=== PATIENT | female | born 1965 | race Caucasian/White ===

== ENCOUNTER 2019-04-14 13:41 | Emergency (ER) | payer OTHER, SELFPAY ==
--- NOTE | ~2019-04-14 | XR_ITS ---
EXAMINATION: XR chest 2V EXAM DATE: 04/14/2019 14:40 INDICATION: Right-sided chest pain. TECHNIQUE: Frontal and lateral projections of the chest obtained and reviewed. Comparison is made to prior examination from 09/19/2018. FINDINGS: Mild hyperinflation. The lungs are clear. There are no pleural effusions. The cardiomedi astinal silhouette is within normal limits. There is no pneumothorax suspected. The bones and soft tissues are unremarkable. Cervical fusion hardware. IMPRESSION: No acute cardiopulmonary findings. Reviewed, dictated and finalized at location B. TRIC POWER LINE REPAIRER
--- NOTE | 2019-04-14 14:04 | ECG_ITS ---
Measurements Intervals [place] Rate: 90 P: 71 [place]: 168 QRS: 103 QRSD: 74 T: 60 QT: 357 QTc: 438 Interpretive Statements SINUS RHYTHM RIGHT AXIS DEVIATION BORDERLINE ECG Electronically Signed On 04-14-2019 14:27:23 METER CALIBRATOR by Duglas Garcia D.O.
[2019-04-14 14:08] VITALS: BP 139/86; PULSE 92; RESP 16; TEMP 37.2; O2SAT 100
[2019-04-14 14:30] LABS: Basophils Percent Auto 0.5 % (0.2-1.2); Eosinophils Absolute Auto 0.1 K/mm3 (0-0.3); Hematocrit 47.8 % (37.0-47.0); Hemoglobin 15.4 g/dL (12.0-15.0); Immature Granulocyte Absolute 0.02 K/mm3 (0.00-0.031); Immature Granulocyte Percent A 0.2 % (0-0.5); Lymphocytes Percent Auto 27.8 % (18.3-44.2); Mean Corpuscular HGB Conc 32.2 g/dl (32-36); Mean Corpuscular Hemoglobin 29.6 pg (26-34); Mean Corpuscular Volume 91.9 fl (80-100); Mean Platelet Volume 9.4 fl (7.4-10.4); Monocytes Absolute Auto 0.3 K/mm3 (0.1-0.6); Monocytes Percent Auto 3.6 % (2.6-8.5); Neutrophils Absolute Auto 5.5 K/mm3 (1.3-6.7); Neutrophils Percent Auto 66.9 % (45.5-73.1); Platelet Count Result 324 k/mm3 (150-375); Red Cell Distribution Width 15.6 % (11.5-14.5); White Blood Count 8.3 K/mm3 (4.5-10.0)
[2019-04-14 14:41] LABS: INR 0.9; Partial Thromboplastin Time 27.6 SECONDS (22.3-36.8); Prothrombin Time 12.2 Seconds (11.1-14.7)
[2019-04-14 14:49] LABS: Blood Urea Nitrogen 12 mg/dL (7-17); Calcium 9.8 mg/dL (8.4-10.2); Carbon Dioxide 26 mmol/L (22-30); Chloride 104 mmol/L (98-107); Estimated CRCL calculation 78 ml/min; Estimated Glomerular Filt Rate > 60; Glucose 126 mg/dL (65-105); Potassium 3.3 mmol/L (3.4-5.0); Sodium 142 mmol/L (137-145)
[2019-04-14 14:59] LABS: Troponin I < 0.012 ng/mL (0.000-0.034)
--- NOTE | 2019-04-14 15:14 | ED.CHESTPAIN ---
HPI - Chest Pain General Chief Complaint: Chest Pain Stated Complaint: CP, arm pain, neck pain Time Seen by Provider: 04/14/19 15:07 Source: patient and RN notes reviewed Mode of arrival: ambulatory Limitations: no limitations History of Present Illness HPI narrative: Pt is a 53 y/o female presenting to the ED c/o CP. Pt reports she has been experiencing CP for over a week. Pt states the pain started in her lt sided chest but is now diffuse across her chest. Pt describes the pain as dull and sharp. Pt states she was seen by her PCP about her pain who suspected it was muscular in origin. Pt notes she has had similar pain about 9 years ago and states they suspected pleurisy at that time. Pt also reports bilateral shoulder pain for 1.5 weeks, BUE pain for 1.5 weeks, chronic rt sided neck pain, diaphoresis, chills, and chronic nausea, but denies fever, cough, rhinorrhea, or congestion. Pt states she currently takes Hydrocodone TID and Baclofen. Onset (ago): week(s) (1) Pain location: other (Diffuse chest) Associated symptoms: nausea (Chronic), diaphoresis and other (Bilateral shoulder pain; BUE pain; chills; Chronic rt sided neck pain) Related Data Allergies Allergy/AdvReac Type Severity Reaction Status Date / Time codeine Allergy Unknown NAUSEA Verified 10/18/18 11:08 Penicillins Allergy Unknown Unknown Verified 10/18/18 11:08 Review of Systems Review of Systems: All systems reviewed & are unremarkable except as noted in HPI and below Constitutional: Constitutional: Reports chills and Denies fever(s) ENT: Denies nasal congestion and Denies other (Rhinorrhea) Cardiovascular: Cardiovascular: Reports chest pain (Diffuse) and Reports diaphoresis Respiratory: Respiratory: Denies cough Gastrointestinal: Gastrointestinal: Reports nausea (Chronic) Musculoskeletal: Musculoskeletal: Reports neck pain (Chronic rt sided) and Reports other (Bilateral shoulder pain; BUE pain) [facility] Past Medical History Medical History Arthritis Asthma Bronchitis DDD (degenerative disc disease) Neck Depression Endometriosis Gall bladder disease History of bipolar disorder History of rectal polyps HLD (hyperlipidemia) Previous known suicide attempt UTI (urinary tract infection) Surgical History Surgical History H/O dilation and curettage H/O rectal polypectomy H/O Spinal surgery Neck H/O tubal ligation H/O: hysterectomy History of x3 History of cholecystectomy History of endometrial ablation History of tonsillectomy Social History Social History Smoking status: Unknown if ever smoked Exam Narrative: Exam Narrative: GENERAL: Well-appearing, well-nourished, and in no acute distress. HEAD: Normocephalic, atraumatic EYES: PERRLA and EOMI, conjunctiva clear without discharge THROAT:Mucous membranes moist, Oropharynx normal without erythema, exudate, peritonsillar swelling or fluctuance NECK: Supple, without lymphadenopathy or mass RESPIRATORY: No respiratory distress, Airway patent, Respirations non-labored, Clear to auscultation without rales, rhonchi or wheeze HEART: Regular rate and rhythm. No murmur heard. Normal peripheral pulses. ABDOMEN: Soft, nontender, nondistended, normal active bowel sounds. No masses. No rebound or guarding, No organomegaly. EXTREMITIES: No edema, normal strength with full range of motion. SKIN: Warm, dry, normal color without rash NEURO: Alert and oriented x3. CN 2-12 grossly intact. No focal deficits. PSYCH: Normal mood and affect. Chest: Chest palpation & inspection: tenderness (reproducible to entire chest wall and shoulders) Course Course Emergency Course: I discussed with patient her pain does appear to muscular. Evaluation unremarkable. Vital Signs Vital signs: Vital Signs Temperature 99.0 F 04/14/19 14:08 Pulse Rate 92 04/14/19 14:08 Resp
[2019-04-14 15:15] VITALS: BP 129/91; PULSE 84; PULSE 88; RESP 12; O2SAT 100
[2019-04-14] MEDS: KETOROLAC 30 MG/ML VIAL (*BKC) IV PUSH (15:46)
[2019-04-14 15:48] VITALS: BP 127/81; PULSE 71; RESP 10; O2SAT 98
[2019-04-14 15:52] LABS: D Dimer 0.27 ug/mL (<0.48)
[2019-04-14 16:37] VITALS: BP 133/62; PULSE 73; RESP 16; O2SAT 100
[2019-04-14 17:34] VITALS: BP 135/86; PULSE 81; RESP 18; O2SAT 100
--- NOTE | 2019-04-14 17:35 | PC.NURSE ---
WHEN AT BEDSIDE TO DRAW 3 HOUR TROP, PT TEARFUL, VERY UPSET, STATES I DON'T KNOW WHY I COME HERE, YOU PEOPLE DON'T KNOW ANYTHING, I NEVER GET ANY ANSWERS WHEN I COME HERE, NO YOU WANT TO POKE ME AGAIN AND LEAVE A BRUISE, ISN'T THIS WHAT THE IV IS FOR?! AFTER EXPLAINING THE NEED FOR THE TROPONIN, PT CUTS ME OFF STATING THAT I KNOW WHY YOU HAVE TO DRAW ME, THAT DOCTOR CAME IN AND DISCUSSED IT WITH ME ALREADY, I DON'T WANT TO DO IT THOUGH. I THEN INFORMED PT THAT I WOULD NOT DRAW HER IF SHE DID NOT WANT ME TO AND THAT IF SHE WANTS TO LEAVE I WILL ARRANGE THE PAPERWORK. PT MORE UPSET STATING THAT YEAH, THEN YOU'LL TRY AND MAKE ME SIGN OUT AGAINST MEDICAL ADVISE, I'M NOT DOING THAT. I DID THEN CONFIRM THAT PT WOULD HAVE TO SIGN OUT AMA IF SHE WANTED TO LEAVE, PT CRYING, STATES JUST STICK ME ALREADY. I THEN SUCCESSFULLY STRAIGHT STUCK TO OBTAIN THE 3 HOUR TROPONIN.
[2019-04-14 17:55] LABS: Troponin I < 0.012 ng/mL (0.000-0.034)
[2019-04-14 18:20] VITALS: BP 148/56; PULSE 90; RESP 21; O2SAT 99
== END 2019-04-14 18:23 | disposition home or self-care (01) ==
PROVIDERS: Emergency Medicine; Emergency Provider General Practice; PCP Family Medicine
DX: R07.89 Other chest pain (principal); M79.10 Myalgia, unspecified site; M19.90 Unspecified osteoarthritis, unspecified site; J45.909 Unspecified asthma, uncomplicated; E78.5 Hyperlipidemia, unspecified; Z87.19 Personal history of other diseases of the digestive system; Z87.440 Personal history of urinary (tract) infections
CPT/HCPCS: 36415; 71046; 80048; 84484; 85025; 85380; 85610; 85730; 93005; 96374; 99284; J1885

== ENCOUNTER 2019-04-30 16:15 | Outpatient (RCR) | payer OTHER, SELFPAY ==
--- NOTE | 2019-04-02 17:44 | PTOPEVAL ---
PHYSICAL THERAPY EVALUATION AND PLAN OF CARE Thank you for referring this patient to [facility]. Audrey will be seen in PT 2x/week for 4 weeks. Please review, sign, date and return this plan of care KAROLINA. I agree with and certify that the following plan of care is medically necessary. Referring Physician Date Attending Provider: Aleja Coffey, ENGLISH AS A SECOND LANGUAGE INSTRUCTOR Evaluation Outpatient Past Medical History Musculoskeletal History Hx Spinal Surgery Yes: C5-6 fusion 2005 Evaluation Information Problem Diagnosis chronic low back pain Onset 2009 Cause insidious Subjective Information Audrey is here today with Query Text:As Reported By Patient/ chronic history of LBP with Family hip and tailbone pain. States that in 2009 she fell down the stairs and went to urgent care who presumed it to be a bruised/fractured tailbone and not prescribe a treatment. Since then the pain has been worsening and moving to her tail bone and hips. States that the hip pain is more deep achey and not shooting. She will ocassionally feel a sharp pain in the back if she moves a certain way and contributes that to a bulging discs. Went pain [facility] and received injections to both hips. Not sure if she felt relief from the injections. Pain Assessment Self Report Pain Assessment Bilateral Spine, Lumbar Reported Pain Level 7 Pain Aggravating Factors Bending,Lifting,Sitting, Walking,Weight Bearing/ Standing Pain Behaviors Anxious,Guarding,Irritable Pain Relief Interventions Used By Heat,Inactivity/Rest Patient Additional Pain Comments left is a little worse than right. Pain Score Pain Score 7: Self Report Lower Extremity Range of Motion General Lower Extremity Range of Motion Reason Not Measured WNL/Left,WNL/Right Lumbar Muscle Testing Lumbar Strength Lower Abdominal Strength 3-Fair- Upper Back Extension 3-Fair- Lower Back Extension 3-Fair- Lower Extremity Muscle Strength Testing General Lower Extremity Strength Reason Not Measured WFL/Left,WFL/Right Gross Lower Extremity Strength generally increase of symptoms
--- NOTE | 2019-04-30 16:55 | PTOPEVAL ---
PHYSICAL THERAPY PLAN OF CARE UPDATE AND PROGRESS REPORT Thank you for referring this patient to [facility]. I recommend Patricia follow-up with her referring physician and determine together further needs for PT based on current progress. Please review, sign, date and return this plan of care KAROLINA. I agree with and certify that the following plan of care is medically necessary. Referring Physician Date Attending Provider: Aleja Coffey, CERAMIC ENGINEER Re-evaluation Outpatient Past Medical History Musculoskeletal History Hx Spinal Surgery Yes: C5-6 fusion 2005 Evaluation Information Problem Diagnosis chronic low back pain Onset 2009 Cause insidious Subjective Information Audrey is here today for re- Query Text:As Reported By Patient/ evaluation following 4 weeks Family of physical therapy for chronic back pain. she reports today that she does not really feel any different. Her middle of her back is the same crushing pain and states that her hips might even have more pain because they hurt during the day and when she walks now instead of just at night. Does not really notice a difference in her ability to tolerate activity or increase her activity levels. Pain Assessment Timing of Pain Assessment Timing of Pain Assessment Pre-Treatment Pain Scale Pain Scale Used Numeric (1 - 10) Self Report Pain Assessment Bilateral Spine, Lumbar Reported Pain Level 5 Pain Aggravating Factors Bending,Lifting,Walking,Weight Bearing/Standing Pain Behaviors Anxious,Guarding,Irritable Pain Score Pain Score 5: Self Report Additional Pain Score Comments hips and back are better than normal today, but neck is killing me Cervical and Lumbar ROM Lumbar ROM Lumbar Flexion (0-90) 50 Query Text:Active in Degrees Lumbar Flexion Active [place] Query Text:Hands to: Lumbar Extension (0-40) 12 Query Text:Active in Degrees Lumbar Comments rotation limited bilaterally, increased pain on left with left rotation Lower Extremity Range of Motion General Lower Extremity Range of Motion Reason Not Measured WNL/Left,WNL/Right Lower Extremity Muscle Strength Testing General Lower Extremity Strength Reason Not Measured WFL/Left,WFL/Right R[place]
--- NOTE | 2019-05-05 16:31 | PCPTNOTE ---
Patient arrived to appointment and reported that her physician instructed her to continue her home exercises and to follow-up with physician for injections and future needs. She does not feel well today and did not want to participate in exercises, therefore, we cancelled the appointment and she will be discharged from current care. If there are further needs in the future, she will obtain an physician order.
== END 2019-06-05 13:08 | disposition home or self-care (01) ==
LOC: ANHPT 16:15
PROVIDERS: PCP Family Medicine; Visit Provider Nurse Practitioner Adult Health
DX: M51.26 Other intervertebral disc displacement, lumbar region (principal)
CPT/HCPCS: 97014; 97110; 97140; 97162; G0283

== ENCOUNTER 2019-07-03 12:30 | Outpatient (RCR) | payer OTHER, SELFPAY ==
--- NOTE | 2019-06-04 14:39 | PTOPEVAL ---
PHYSICAL THERAPY EVALUATION AND PLAN OF CARE Thank you for referring Audrey Burton to [facility]. I recommend physical therapy for cervical pain 1-2x/week for 4 weeks. Please review, sign, date and return this plan of care KAROLINA. I agree with and certify that the following plan of care is medically necessary. Referring Physician Date Attending Provider: Isac Cervantes MD Evaluation Outpatient Past Medical History Musculoskeletal History Hx Spinal Surgery Yes: C5-6 fusion 2005 Diagnosis chronic neck pain Onset 2005 Subjective Information Patricia reports that her neck Query Text:As Reported By Patient/ started to hurt in 2005 and Family she had C4-5 fused due to herniated disc with radiculopathy to left arm. Since the surgery she was doing well except that she has been diagnosed with DDD and the last several months the pain has been really bad. States she experiences tingling beneath her shoulder blades and fatigue in her arms , but no numbness in her arms. Her arms gets tired from doing overhead activities but her hands do not go numb. She does have headaches - is not sure if they are directly related to the neck pains, but she suspects. Headaches are a couple times a week. Pain Assessment Timing of Pain Assessment Timing of Pain Assessment Assessment Pain Scale Pain Scale Used Numeric (1 - 10) Self Report Pain Assessment Spine, Cervical Reported Pain Level 6 Pain Description Aching,Heavy Pain Frequency Chronic,Continuous Lowest Pain Intensity 4 Greatest Pain Intensity 9 Pain Aggravating Factors Palpation Pain Behaviors Anxious Pain Score Pain Score 6: Self Report Cervical and Lumbar ROM Cervical ROM Cervical Flexion (0-60) 50 Query Text:Active in Degrees Cervical Extension (0-70) 45 Query Text:Active in Degrees Cervical Lateral Flexion Right (0-50) 40 Query Text:Active in Degrees Cervical Lateral Flexion Left (0-50) 40 Query Text:Active in Degrees Cervical Rotation Right (0-90) 51 Query Text:Active in Degrees Cervical Rotation Left (0-90) 48 Query Text:Active in Degrees Cervical ROM Comments
--- NOTE | 2019-06-12 12:49 | PCPTNOTE ---
Patient called & cancelled scheduled appointment this date due to sinus infection, not feeling well.
--- NOTE | 2019-06-19 12:34 | PCPTNOTE ---
Patient called & cancelled scheduled appointment this date due to not feeling well and having car issues
--- NOTE | 2019-06-30 12:40 | PCPTNOTE ---
Pt came to therapy however her gastroparesis is acting up and pt is very sick to her stomach. Pt also stated she has been vomiting all morning and doesn't think her stomach can tolerate therapy today. Pt stated her neck is feeling good it's just her stomach is very upset. Pt left and cancelled her therapy session for this afternoon.
--- NOTE | 2019-07-03 13:16 | PTOPEVAL ---
PHYSICAL THERAPY DISCHARGE REPORT Thank you for referring Audrey Burton to [facility]. Please review, sign, date and return this plan of care [facility]. I agree with and certify that the following plan of care is medically necessary. Referring Physician Date Attending Provider: Isac Cervantes MD Discharge Outpatient Past Medical History Musculoskeletal History Hx Spinal Surgery Yes: C5-6 fusion 2005 Evaluation Information Problem Diagnosis chronic neck pain Onset 2005 Subjective Information Patricia has participated in 4 Query Text:As Reported By Patient/ weeks of physical therapy for Family acute on chronic neck pain. In 2005 she had C4-5 fused due to herniated disc with radiculopathy to left arm. Following the surgery she faired well until recent months in which she has experienced headaches and neck pain with right shoulder blade pain (C5,6,7 radiating pain). Today Patricia reports that overall she is improved except today her pain is increased again. States that her stomach has been bothering her and she hasn't felt like doing her exercises. States she does understand that the exercises are meant to help manage the pain symptoms and that if they are not performed there is less likelihood of change/improvement. Patricia also described to me today that in the fall of 2018 she was diagnosed with gastroperesis, her father suddenly, her neck pain started to flare up, and she stopped driving out of nervouseness. It would seem that her emotional stress is rising along with her physical stress and I discussed with her the importance of determining appropriate coping mechanisms for stress. She stated understanding. Spine, Cervical Reported Pain Level 5 Pain D
== END 2019-07-03 16:01 | disposition home or self-care (01) ==
LOC: ANHPT 12:30
PROVIDERS: PCP Family Medicine; Visit Provider Family Medicine
DX: M47.892 Other spondylosis, cervical region (principal); M47.816 Spondylosis without myelopathy or radiculopathy, lumbar region
CPT/HCPCS: 97110; 97140; 97161

== ENCOUNTER 2019-08-21 10:22 | Outpatient (CLI) | payer OTHER, SELFPAY ==
--- NOTE | ~2019-08-21 | CT_ITS ---
EXAMINATION: CT chest w con DATE: 08/21/2019 10:55 INDICATION: Night sweats TECHNIQUE: Transaxial computed tomographic images of the chest were obtained after the administration of 75 cc of Omnipaque 350 intravenous contrast. The dose-length product (DLP) was 143.93 mGy-cm. Ite rative reconstruction was used. COMPARISON: 06/18/2004 FINDINGS: There is mild emphysema. A 4 mm nodule is present in the left upper lobe on image 34. There is no pleural effusion or pneumothorax. No pathologically enlarged thoracic lymph nodes are identifi ed. The heart size is normal. There is mild thoracic spondylosis. Partially imaged changes of anterio r fusion procedure are noted in the lower cervical spine. The gallbladder is surgically absent. There is mild enlargement of the common bile duct and central intrahepatic ducts which is likely due to po st cholecystectomy state. Stable left adrenal masses measuring up to 1.6 cm are consistent with adeno mas given their interval stability. IMPRESSION: 1. No acute cardiopulmonary abnormality. 2. 4 mm nodule of the left upper lobe. Consider follow-up CT in 12 months. Reviewed, dictated and finalized at location A.
[2019-08-21 10:50] LABS: Estimated Glomerular Filt Rate 47
== END 2019-08-21 10:23 | disposition home or self-care (01) ==
LOC: ANHIMG 10:27
PROVIDERS: PCP Family Medicine; Visit Provider Nurse Practitioner Family
DX: R61 Generalized hyperhidrosis (principal)
CPT/HCPCS: 36415; 71260; Q9967

== ENCOUNTER 2019-08-29 10:05 | Emergency (ER) | payer OTHER, SELFPAY ==
[2019-08-29] VITALS (9 sets, daily range): BP systolic 99–135; BP diastolic 48–94; PULSE 76–85; RESP 14–18; TEMP 36.7; O2SAT 100
--- NOTE | ~2019-08-29 | XR_ITS ---
EXAMINATION: XR chest 2V DATE: 08/29/2019 10:45 INDICATION: Left chest pain. TECHNIQUE: Frontal and lateral views of the chest were obtained. COMPARISON: Chest 2 views 04/14/2019, chest CT 08/21/2019 FINDINGS: The chest demonstrates clear lungs without pneumonia, pleural effusion, or pneumothorax. Th e heart size is normal. IMPRESSION: 1. No acute cardiopulmonary disease. Reviewed, dictated and finalized at location A.
--- NOTE | 2019-08-29 10:18 | ECG_ITS ---
Measurements Intervals [place] Rate: 78 P: -24 [place]: 162 QRS: 93 QRSD: 72 T: 49 QT: 386 QTc: 441 Interpretive Statements SINUS RHYTHM RIGHT AXIS DEVIATION RSR' IN V1 OR V2, CONSIDER RIGHT VENTRICULAR HYPERTROPHY OR RIGHT VCD BASELINE ARTIFACT- I, II, III, AVR, AVF, V3 BORDERLINE ECG Electronically Signed On 08-29-2019 12:51:35 CDT by Duglas Garcia D.O.
[2019-08-29 10:30] LABS: Basophils Absolute Auto 0.1 K/mm3 (0.0-0.1); Basophils Percent Auto 0.7 % (0.2-1.2); Eosinophils Absolute Auto 0.1 K/mm3 (0-0.3); Eosinophils Percent Auto 0.5 % (0-4.4); Hematocrit 46.6 % (37.0-47.0); Hemoglobin 15.5 g/dL (12.0-15.0); Immature Granulocyte Absolute 0.02 K/mm3 (0.00-0.031); Immature Granulocyte Percent A 0.2 % (0-0.5); Lymphocytes Percent Auto 29.4 % (18.3-44.2); Mean Corpuscular HGB Conc 33.3 g/dl (32-36); Mean Corpuscular Hemoglobin 30.3 pg (26-34); Mean Platelet Volume 9.3 fl (7.4-10.4); Monocytes Absolute Auto 0.4 K/mm3 (0.1-0.6); Monocytes Percent Auto 3.5 % (2.6-8.5); Neutrophils Absolute Auto 6.9 K/mm3 (1.3-6.7); Neutrophils Percent Auto 65.7 % (45.5-73.1); Platelet Count Result 341 k/mm3 (150-375); Red Blood Count 5.12 M/mm3 (4.2-5.4); White Blood Count 10.5 K/mm3 (4.5-10.0)
[2019-08-29 10:40] LABS: INR 0.9; Prothrombin Time 12.3 Seconds (11.1-14.7)
[2019-08-29 10:41] LABS: Partial Thromboplastin Time 26.9 SECONDS (22.3-36.8)
[2019-08-29 10:48] LABS: Alanine Aminotransferase 14 U/L (4-35); Albumin Level 4.6 g/dL (3.5-5.1); Alkaline Phosphatase 89 U/L (38-126); Aspartate Amino Transferase 22 U/L (14-36); Bilirubin,Total 0.4 mg/dL (0.2-1.3); Blood Urea Nitrogen 19 mg/dL (7-17); Calcium 9.9 mg/dL (8.4-10.2); Carbon Dioxide 24 mmol/L (22-30); Chloride 102 mmol/L (98-107); Estimated CRCL calculation 39 ml/min; Estimated Glomerular Filt Rate 39; Glucose 111 mg/dL (65-105); Potassium 3.9 mmol/L (3.4-5.0); Sodium 137 mmol/L (137-145)
[2019-08-29 10:57] LABS: Troponin I < 0.012 ng/mL (0.000-0.034)
[2019-08-29] MEDS: FAMOTIDINE 20 MG/2 ML VIAL IV PUSH (11:11)
[2019-08-29] MEDS: SODIUM CHLORIDE 0.9% IV 1,000 ML 999 ML IV CONT ×2 (11:11→12:09)
[2019-08-29 11:12] LABS: D Dimer 0.28 ug/mL (<0.48)
[2019-08-29] MEDS: PROCHLORPERAZINE EDISYLATE 10 MG/2 ML VIAL IV PUSH (11:19)
[2019-08-29 11:33] LABS: Add Urine Microscopic? YES; Appearance Urine Cloudy (Clear); Bacteria Urine 2+ /hpf; Bilirubin Urine Negative (Negative); Blood Urine 1+ (Negative); Color Urine Yellow (Yellow); Glucose Urine UA Negative (Negative); Ketones Urine Trace mg/dL (Negative); Leukocyte Esterase Ur 1+ LEU/UL (Negative); Mucus Urine Rare /lpf; Nitrate Urine Negative (Negative); Protein Urine Negative (Negative); Specific Grav Ur 1.013 (1.001-1.035); Squamous Epithelial Cell Urine Many /hpf (Few)
[2019-08-29 11:50] LABS: Amphetamine Screen Urine Negative (Negative); Barbiturate Screen Urine Negative (Negative); Benzodiazepines Screen Urine Negative (Negative); Cannabinoid Screen Urine Positive (Negative); Cocaine Screen Urine Negative (Negative); Methadone Screen Urine Negative (Negative); Opiate Screen Urine Positive (Negative); Phencyclidine Screen Urine Negative (Negative)
[2019-08-29 12:03] LABS: Creatine Kinase 30 U/L (30-135)
--- NOTE | 2019-08-29 12:50 | PC.NURSE ---
RN at bedside to provide bedpan for urination at this time. Orthostatic vital signs completed.
--- NOTE | 2019-08-29 13:05 | ED.GENADULT ---
HPI - General Adult General Chief complaint: Dizziness Stated complaint: Syncopal Time Seen by Provider: 08/29/19 10:12 Source: patient Mode of arrival: ambulatory Limitations: no limitations History of Present Illness HPI narrative: Patient is a 53-year-old female who presents to emergency department for evaluation of 3 episodes of syncope that occurred last night while at home patient did not sustain any injuries from the fall patient notes that their heating and air did go out last night and that they were in the heat and thought possibly that he was to play for her syncope on arrival to emergency department patient in the room in no distress knowing fatigue which she has chronically also low back pain which she notes is chronic in nature patient has frequent vomiting attributed to her chronic gastroparesis has had episodes of emesis also notes she has had some congestion and runny nose as well denies any sick contacts cough is nonproductive. Patient does have history for tobacco abuse Related Data Home Medications Medication Instructions Recorded Confirmed baclofen mg 08/29/19 cetirizine [Zyrtec] 10 mg PO DAILY 08/29/19 fluticasone propionate INTRANASAL 08/29/19 hydrocodone-acetaminophen 08/29/19 lisinopril 08/29/19 ondansetron 08/29/19 pantoprazole PO 08/29/19 Allergies Allergy/AdvReac Type Severity Reaction Status Date / Time codeine Allergy Unknown NAUSEA Verified 08/29/19 10:29 Penicillins Allergy Unknown Unknown Verified 08/29/19 10:29 Review of Systems Review of Systems: All systems reviewed & are unremarkable except as noted in HPI and below PMFSH Past Medical History Medical History Arthritis Asthma Bronchitis DDD (degenerative disc disease) Neck Depression Endometriosis Gall bladder disease History of bipolar disorder History of rectal polyps HLD (hyperlipidemia) Previous known suicide attempt UTI (urinary tract infection) Surgical History Surgical History H/O dilation and curettage H/O rectal polypectomy H/O Spinal surgery Neck H/O tubal ligation H/O: hysterectomy History of x3 History of cholecystectomy History of endometrial ablation History of tonsillectomy Social History Social History Smoking status: Unknown if ever smoked Gender identity (if verbalized by the patient): Female Exam Narrative: Exam Narrative: GENERAL: Well-appearing, well-nourished, and in no acute distress. HEAD: Normocephalic, atraumatic. EYES: PERRLA and EOMI. ENT: Nares clear, no rhinorrhea or epistaxis. Mucous membranes moist. Oropharynx without tonsillar hypertrophy exudate or other lesions. NECK: Supple. No adenopathy or masses. CHEST: Clear to auscultation. No respiratory distress. No wheezes rales or rhonchi HEART: Regular rate and rhythm. No murmur heard. Normal peripheral pulses. ABDOMEN: Soft, nontender, nondistended EXTREMITIES: Normal range of motion. No edema. SKIN: Warm, dry, no rash. NEURO: No focal deficits. Alert and oriented x3. Cranial nerves II through XII grossly intact PSYCH: Normal mood and affect. Course Course Emergency Course: Patient in the room at this time is been hydrated 2 L with improvement of her orthostatic blood pressure so likely a possible cause patient is afebrile nontoxic-appearing no distress patient prefers to go home patient is requesting to be discharged patient will be discharged and is felt appropriate for outpatient reevaluation by her primary care doctor patient's primary care doctor made aware. Reevaluation(s) Reevaluation #1: Patient resting in the room in no distress aware of case findings treatment plan and diagnosis agreeing to follow-up with primary care felt appropriate for outpatient reevaluation Date: 08/29/19 Time: 13:23 Consultations Consultation #1: Dis
[2019-08-29 22:38] LABS: SARS-CoV-2 RNA PCR Negative
== END 2019-08-29 14:00 | disposition home or self-care (01) ==
PROVIDERS: Emergency Medicine Emergency Medical Services; Emergency Provider Emergency Medicine; PCP Family Medicine
DX: R55 Syncope and collapse (principal); Z20.828 Contact with and (suspected) exposure to other viral communicable diseases; M19.90 Unspecified osteoarthritis, unspecified site; J45.909 Unspecified asthma, uncomplicated; N80.9 Endometriosis, unspecified; Z87.19 Personal history of other diseases of the digestive system; Z87.440 Personal history of urinary (tract) infections; E78.5 Hyperlipidemia, unspecified; K31.84 Gastroparesis; Z87.891 Personal history of nicotine dependence; R94.31 Abnormal electrocardiogram [ECG] [EKG]
CPT/HCPCS: 36415; 71046; 80053; 80307; 81001; 82550; 84484; 85025; 85380; 85610; 85730; 87635; 93005; 96361; 96374; 96375; 99284; C9803; J0780; J7030; U0003

== ENCOUNTER 2019-10-22 10:26 | Outpatient (CLI) | payer OTHER, SELFPAY ==
--- NOTE | 2019-10-22 | EST_ITS ---
Patient Info Name: Audrey Burton Age: 53 years : 1965 Gender: Female Ht: 67 in Wt: 153 lbs BSA: 1.82 m2 Exam Date: 10/22/2019 11:32 AM Exam Location: [facility] Patient Status: Outpatient Admit Date: 10/22/2019 Staff Ordering Physician: Isac Cervantes MD Attending Provider: BUZZ LEY Exercise Technologist: Henry Lynch RDCS, RT Exam Type: CA stress test treadmill Study Info A treadmill exercise stress test was performed. Summary 1. Normal ST segment response to stress. 2. Patient had baseline dull chest pain into the left axilla and into the back before, during, and after her stress test. Protocol: [facility] ECG Details Stage: REST Duration (min): 0 min : 51 sec Speed (mph): 0.0 Grade (%): 0 HR (bpm): 91 SBP (mmHg): 124 DBP (mmHg): 90 METS: --- Stage: REST Duration (min): 8 min : 54 sec Speed (mph): 0.0 Grade (%): 0 HR (bpm): 90 SBP (mmHg): 124 DBP (mmHg): 90 METS: --- Stage: STAGE 1 Duration (min): 1 min : 0 sec Speed (mph): 1.7 Grade (%): 10 HR (bpm): 124 SBP (mmHg): 124 DBP (mmHg): 90 METS: --- Stage: STAGE 1 Duration (min): 2 min : 0 sec Speed (mph): 1.7 Grade (%): 10 HR (bpm): 146 SBP (mmHg): 124 DBP (mmHg): 90 METS: --- Stage: STAGE 1 Duration (min): 3 min : 0 sec Speed (mph): 1.7 Grade (%): 10 HR (bpm): 150 SBP (mmHg): 170 DBP (mmHg): 96 METS: --- Stage: STAGE 2 Duration (min): 1 min : 0 sec Speed (mph): 2.5 Grade (%): 12 HR (bpm): 163 SBP (mmHg): 170 DBP (mmHg): 96 METS: --- Stage: STAGE 2 Duration (min): 1 min : 42 sec Speed (mph): 2.5 Grade (%): 12 HR (bpm): 168 SBP (mmHg): 170 DBP (mmHg): 96 METS: --- Stage: RECOVERY Duration (min): 0 min : 17 sec Speed (mph): 1.5 Grade (%): 0 HR (bpm): 167 SBP (mmHg): 170 DBP (mmHg): 96 METS: --- Stage: RECOVERY Duration (min): 1 min : 17 sec Speed (mph): 0.0 Grade (%): 0 HR (bpm): 146 SBP (mmHg): 170 DBP (mmHg): 96 METS: --- Stage: RECOVERY Duration (min): 2 min : 17 sec Speed (mph): 0.0 Grade (%): 0 HR (bpm): 128 SBP (mmHg): 170 DBP (mmHg): 96 METS: --- Stage: RECOVERY Duration (min): 3 min : 17 sec Speed (mph): 0.0 Grade (%): 0 HR (bpm): 116 SBP (mmHg): 146 DBP (mmHg): 76 METS: --- Stage: RECOVERY Duration (min): 4 min : 17 sec Speed (mph): 0.0 Grade (%): 0 HR (bpm): 111 SBP (mmHg): 146 DBP (mmHg): 76 METS: --- Stage: RECOVERY Duration (min): 5 min : 17 sec Speed (mph): 0.0 Grade (%): 0 HR (bpm): 112 SBP (mmHg): 143 DBP (mmHg): 79 METS: --- Stage: RECOVERY Duration (min): 6 min : 17 sec Speed (mph): 0.0 Grade (%): 0 HR (bpm):
== END 2019-10-22 10:27 | disposition home or self-care (01) ==
PROVIDERS: PCP Family Medicine; Visit Provider Family Medicine
DX: R07.9 Chest pain, unspecified (principal)
CPT/HCPCS: 93017

== ENCOUNTER 2020-05-07 14:08 | Emergency (ER) | payer OTHER, SELFPAY ==
--- NOTE | ~2020-05-07 | CT_ITS ---
EXAMINATION: CT brain wo con DATE: 05/07/2020 14:58 INDICATION: Headache. TECHNIQUE: Computed tomography (CT) of the head was performed without intravenous contrast. The mA wa s adjusted according to patient size. Iterative reconstruction technique was employed. The dose-lengt h product was 605.33 mGy-cm. COMPARISON: None FINDINGS: There is no intracranial hemorrhage, acute infarction, or abnormal intracranial mass lesion . The ventricles are normal in size. The paranasal sinuses are clear. The orbits are normal. The mast oid air cells are normal. IMPRESSION: 1. Normal brain. Reviewed, dictated and finalized at location A. IMPRESSION: 1. Normal brain.
--- NOTE | ~2020-05-07 | XR_ITS ---
EXAMINATION: XR chest 1V DATE: 05/07/2020 15:06 INDICATION: Generalized chest pain. TECHNIQUE: A single frontal view of the chest was obtained. COMPARISON: Chest 2 views 08/29/2019, chest CT 08/21/2019 FINDINGS: The chest demonstrates clear lungs without pneumonia, pleural effusion, or pneumothorax. Th e heart size is normal. There are changes of anterior fusion procedure in cervical spine. Surgical cl ips in the right upper quadrant are likely from cholecystectomy. IMPRESSION: 1. No acute cardiopulmonary disease. Reviewed, dictated and finalized at location A.
[2020-05-07 14:11] VITALS: BP 156/96; PULSE 99; RESP 18; TEMP 36.7; O2SAT 99
--- NOTE | 2020-05-07 14:45 | ED.HA ---
HPI - Headache General Chief Complaint: Headache Stated Complaint: EHADACHE Time Seen by Provider: 05/07/20 14:40 Source: patient Mode of arrival: ambulatory Limitations: no limitations History of Present Illness HPI Narrative: Patient is 54 years old white female presents with headache at the frontal and occipital area started 3 days ago, constant, get better with ibuprofen, nothing make it worse. Patient denies any fever, chills, nausea, vomiting. Patient had history of chronic neck pain and chest pain for years. Patient was seen by his psychiatrist yesterday and was started on new medication for insomnia. Patient denies history of COVID-19 infection or exposure to anybody with COVID-19. Patient is telling me that probably have sinus infection because her maxillary sinuses are tender bilaterally. Patient denies any nasal congestion, runny nose, postnasal discharge. Patient on [place] for chronic back pain, also uses marijuana as needed Related Data Home Medications Medication Instructions Recorded Confirmed baclofen mg 08/29/19 cetirizine [Zyrtec] 10 mg PO DAILY 08/29/19 fluticasone propionate INTRANASAL 08/29/19 hydrocodone-acetaminophen 08/29/19 lisinopril 08/29/19 ondansetron 08/29/19 pantoprazole PO 08/29/19 Allergies Allergy/AdvReac Type Severity Reaction Status Date / Time codeine Allergy Unknown NAUSEA Verified 08/29/19 10:29 Penicillins Allergy Unknown Unknown Verified 08/29/19 10:29 Review of Systems Review of Systems: Narrative: CONSTITUTIONAL: Denies fever, chills, or sweats. EYES: Denies visual changes, redness, or discharge. ENT: Denies rhinorrhea, congestion, sore throat, or otalgia. CARDIOVASCULAR: Denies chest pain, palpitations, or edema. RESPIRATORY: Denies cough or dyspnea. GASTROINTESTINAL: Denies abdominal pain, nausea, vomiting, or diarrhea. GENITOURINARY: Denies dysuria or hematuria. SKIN: Denies rash or itching. MUSCULOSKELETAL: Denies back pain, joint pain, or myalgia. NEUROLOGIC: Headache PSYCHIATRIC: Denies anxiety or depression. [facility] Past Medical History Medical History (Updated 05/07/20 @ 16:05 by Kelly Spain MD) Arthritis Asthma Bronchitis DDD (degenerative disc disease) Neck Depression Endometriosis Gall bladder disease History of bipolar disorder History of rectal polyps HLD (hyperlipidemia) Previous known suicide attempt UTI (urinary tract infection) Surgical History Surgical History H/O dilation and curettage H/O rectal polypectomy H/O Spinal surgery Neck H/O tubal ligation H/O: hysterectomy History of x3 History of cholecystectomy History of endometrial ablation History of tonsillectomy Social History Social History Smoking status: Unknown if ever smoked Gender identity (if verbalized by the patient): Female Exam Narrative: Exam Narrative: General appearance: Well-developed, well-nourished Skin: Normal color Head: Normocephalic, nontraumatic Eyes: Clear conjunctiva ENT: Oropharynx normal, ears normal, nose normal, mild tenderness to maxillary sinuses bilaterally, no bruises, no rash. Neck: Supple, nontender Chest and respiratory: Airway patent, no respiratory distress, no accessory muscle use Heart: Regular rate/rhythm Abdomen: Soft, nontender, no organomegaly, quiet bowel sounds Vascular: Normal peripheral pulses, normal capillary refill. Musculoskeletal: Normal range of motion, nontender back Neurologic: Alert and oriented ?3, LINE PREP COOK is normal as tested, no gross motor deficit Course Course Emergency Course: Improved Vital Signs Vi
[2020-05-07 15:02] LABS: Basophils Absolute Auto 0.1 K/mm3 (0.0-0.1); Basophils Percent Auto 0.6 % (0.2-1.2); Eosinophils Absolute Auto 0.1 K/mm3 (0-0.3); Eosinophils Percent Auto 0.7 % (0-4.4); Hematocrit 44.5 % (37.0-47.0); Hemoglobin 14.9 g/dL (12.0-15.0); Immature Granulocyte Absolute 0.03 K/mm3 (0.00-0.031); Immature Granulocyte Percent A 0.3 % (0-0.5); Lymphocytes Absolute Auto 2.45 K/mm3 (0.9-3.2); Mean Corpuscular HGB Conc 33.5 g/dl (32-36); Mean Corpuscular Hemoglobin 29.6 pg (26-34); Mean Corpuscular Volume 88.5 fl (80-100); Mean Platelet Volume 8.9 fl (7.4-10.4); Monocytes Absolute Auto 0.4 K/mm3 (0.1-0.6); Monocytes Percent Auto 4.8 % (2.6-8.5); Neutrophils Absolute Auto 5.7 K/mm3 (1.3-6.7); Neutrophils Percent Auto 65.6 % (45.5-73.1); Platelet Count Result 387 k/mm3 (150-375); Red Blood Count 5.03 M/mm3 (4.2-5.4); Red Cell Distribution Width 14.9 % (11.5-14.5); White Blood Count 8.8 K/mm3 (4.5-10.0)
[2020-05-07] MEDS: SODIUM CHLORIDE 0.9% IV 1,000 ML 999 ML IV CONT (15:06)
[2020-05-07] MEDS: LORazepam INJ (*CRX) 2 MG/ML VIAL 1 MG IV PUSH (15:06)
[2020-05-07] MEDS: KETOROLAC 30 MG/ML VIAL (*BKC) IV PUSH (15:07)
[2020-05-07 15:10] LABS: Add Urine Microscopic? YES; Appearance Urine Cloudy (Clear); Bilirubin Urine 1+ (Negative); Blood Urine 1+ (Negative); Color Urine Amber (Yellow); Glucose Urine UA Negative (Negative); Ketones Urine Trace mg/dL (Negative); Leukocyte Esterase Ur Trace LEU/UL (Negative); Mucus Urine Heavy /lpf; Nitrate Urine Negative (Negative); Protein Urine 2+ mg/dL (Negative); Specific Grav Ur 1.024 (1.001-1.035); Squamous Epithelial Cell Urine Many /hpf (Few); WBC Urine 0-3 /hpf
[2020-05-07 15:15] LABS: Alanine Aminotransferase 15 U/L (4-35); Albumin Level 4.1 g/dL (3.5-5.1); Alkaline Phosphatase 104 U/L (38-126); Anion Gap 7 mmol/L (8-16); Aspartate Amino Transferase 21 U/L (14-36); Bilirubin,Total 0.5 mg/dL (0.2-1.3); Blood Urea Nitrogen 10 mg/dL (7-17); Calcium 9.3 mg/dL (8.4-10.2); Carbon Dioxide 27 mmol/L (22-30); Chloride 107 mmol/L (98-107); Estimated CRCL calculation 55 ml/min; Estimated Glomerular Filt Rate 58; Glucose 107 mg/dL (65-105); Potassium 3.5 mmol/L (3.4-5.0); Sodium 141 mmol/L (137-145)
[2020-05-07 15:24] LABS: Amphetamine Screen Urine Negative (Negative); Barbiturate Screen Urine Negative (Negative); Benzodiazepines Screen Urine Negative (Negative); Cannabinoid Screen Urine Positive (Negative); Cocaine Screen Urine Negative (Negative); Methadone Screen Urine Negative (Negative); Opiate Screen Urine Positive (Negative); Phencyclidine Screen Urine Negative (Negative)
== END 2020-05-07 16:17 | disposition home or self-care (01) ==
PROVIDERS: Emergency Provider Emergency Medicine; PCP Family Medicine
DX: G44.209 Tension-type headache, unspecified, not intractable (principal); F51.05 Insomnia due to other mental disorder; M19.90 Unspecified osteoarthritis, unspecified site; J45.909 Unspecified asthma, uncomplicated; E78.5 Hyperlipidemia, unspecified; F41.9 Anxiety disorder, unspecified; F32.9 Major depressive disorder, single episode, unspecified; Z87.440 Personal history of urinary (tract) infections; Z87.19 Personal history of other diseases of the digestive system
CPT/HCPCS: 36415; 70450; 71045; 80053; 80307; 81001; 84443; 85025; 96361; 96374; 96375; 99284; J1885; J2060; J7030

== ENCOUNTER 2020-06-24 20:02 | Emergency (ER) | payer OTHER, SELFPAY ==
[2020-06-24 20:05] VITALS: BP 126/70; PULSE 62; RESP 16; TEMP 36.5; O2SAT 99
[2020-06-24 20:45] LABS: Basophils Absolute Auto 0.1 K/mm3 (0.0-0.1); Basophils Percent Auto 0.8 % (0.2-1.2); Eosinophils Absolute Auto 0.1 K/mm3 (0-0.3); Eosinophils Percent Auto 1.1 % (0-4.4); Hematocrit 47.3 % (37.0-47.0); Hemoglobin 15.8 g/dL (12.0-15.0); Immature Granulocyte Absolute 0.06 K/mm3 (0.00-0.031); Immature Granulocyte Percent A 0.6 % (0-0.5); Lymphocytes Absolute Auto 2.32 K/mm3 (0.9-3.2); Lymphocytes Percent Auto 22.4 % (18.3-44.2); Mean Corpuscular HGB Conc 33.4 g/dl (32-36); Mean Corpuscular Hemoglobin 29.4 pg (26-34); Mean Corpuscular Volume 87.9 fl (80-100); Monocytes Absolute Auto 0.4 K/mm3 (0.1-0.6); Monocytes Percent Auto 3.6 % (2.6-8.5); Neutrophils Absolute Auto 7.4 K/mm3 (1.3-6.7); Neutrophils Percent Auto 71.5 % (45.5-73.1); Platelet Count Result 299 k/mm3 (150-375); Red Blood Count 5.38 M/mm3 (4.2-5.4); White Blood Count 10.4 K/mm3 (4.5-10.0)
[2020-06-24] MEDS: SODIUM CHLORIDE 0.9% IV 1,000 ML 150 ML IV CONT (20:46)
[2020-06-24] MEDS: ONDANSETRON INJ 4 MG/2 ML VIAL IV PUSH (20:47)
[2020-06-24] MEDS: KETOROLAC 30 MG/ML VIAL (*BKC) IV PUSH (20:47)
[2020-06-24 22:19] LABS: Add Urine Microscopic? YES; Appearance Urine Cloudy (Clear); Bacteria Urine Trace /hpf; Bilirubin Urine Negative (Negative); Blood Urine 1+ (Negative); Color Urine Yellow (Yellow); Glucose Urine UA Negative (Negative); Ketones Urine Negative (Negative); Leukocyte Esterase Ur Negative LEU/UL (Negative); Mucus Urine Rare /lpf; Nitrate Urine Negative (Negative); Protein Urine Negative (Negative); RBC Urine 0-2 /hpf (0-2); Specific Grav Ur 1.016 (1.001-1.035); Squamous Epithelial Cell Urine Occasional /hpf (Few); Urobilinogen Urine Negative mg/dL (<2.0); WBC Urine 0-3 /hpf
[2020-06-24 23:02] VITALS: BP 137/100; PULSE 7; RESP 16; O2SAT 99
[2020-06-24 23:04] LABS: Potassium 4.1 mmol/L (3.4-5.0)
[2020-06-24 23:10] LABS: Alanine Aminotransferase 16 U/L (4-35); Albumin Level 3.9 g/dL (3.5-5.1); Alkaline Phosphatase 93 U/L (38-126); Anion Gap 3 mmol/L (8-16); Aspartate Amino Transferase 22 U/L (14-36); Bilirubin,Total 0.4 mg/dL (0.2-1.3); Blood Urea Nitrogen 12 mg/dL (7-17); Calcium 9.2 mg/dL (8.4-10.2); Carbon Dioxide 31 mmol/L (22-30); Chloride 106 mmol/L (98-107); Estimated CRCL calculation 61 ml/min; Estimated Glomerular Filt Rate > 60; Glucose 107 mg/dL (65-105); Sodium 140 mmol/L (137-145)
--- NOTE | 2020-06-24 23:20 | ED.GENADULT ---
HPI - General Adult General Chief complaint: Nausea/Vomiting/Diarrhea Stated complaint: LATHAM, N/V Time Seen by Provider: 06/24/20 20:07 Source: patient Mode of arrival: EMS Limitations: no limitations History of Present Illness HPI narrative: 54-year-old brought in from home with the complaints of headache, nausea and vomiting for the last 1 day. Patient states that she woke up with severe pain. She denies any fever or chills. She states that she is unable to keep any fluids down. Complains of weakness as well. Onset (ago): day(s) (1) Location: head Radiation: non-radiation Severity: moderate Pain Consistency: constant Relieving factors: none Exacerbating factors: none Associated symptoms: nausea/vomiting Related Data Home Medications Medication Instructions Recorded Confirmed baclofen mg 08/29/19 cetirizine [Zyrtec] 10 mg PO DAILY 08/29/19 fluticasone propionate INTRANASAL 08/29/19 hydrocodone-acetaminophen 08/29/19 lisinopril 08/29/19 ondansetron 08/29/19 pantoprazole PO 08/29/19 Allergies Allergy/AdvReac Type Severity Reaction Status Date / Time codeine Allergy Unknown NAUSEA Verified 08/29/19 10:29 Penicillins Allergy Unknown Unknown Verified 08/29/19 10:29 Review of Systems Review of Systems: All systems reviewed & are unremarkable except as noted in HPI and below Constitutional: Constitutional: Reports no additional constitutional complaints Eyes: Eyes: Reports no additional eye complaints ENT: Reports system reviewed and no additional complaints, except as documented Cardiovascular: Cardiovascular: Reports no additional cardiovascular complaints Respiratory: Respiratory: Reports no additional respiratory complaints Gastrointestinal: Gastrointestinal: Reports as per HPI Musculoskeletal: Musculoskeletal: Reports no additional musculoskeletal complaints Neurologic: Reports as per HPI Psychiatric: Psychiatric: Reports no additional psychiatric complaints [facility] Past Medical History Medical History Arthritis Asthma Bronchitis DDD (degenerative disc disease) Neck Depression Endometriosis Gall bladder disease History of bipolar disorder History of rectal polyps HLD (hyperlipidemia) Previous known suicide attempt UTI (urinary tract infection) Surgical History Surgical History H/O dilation and curettage H/O rectal polypectomy H/O Spinal surgery Neck H/O tubal ligation H/O: hysterectomy History of x3 History of cholecystectomy History of endometrial ablation History of tonsillectomy Social History Social History Smoking status: Unknown if ever smoked Gender identity (if verbalized by the patient): Female Exam Narrative: Exam Narrative: GENERAL: Well-appearing, well-nourished, and in no acute distress. HEAD: Normocephalic, atraumatic. EYES: PERRLA and EOMI.. NECK: Supple. CHEST: Clear to auscultation. No respiratory distress. HEART: Regular rate and rhythm. No murmur heard. Normal peripheral pulses. ABDOMEN: Soft, nontender, nondistended, normal active bowel sounds. EXTREMITIES: Normal range of motion. No edema. SKIN: Warm, dry, no rash. NEURO: No focal deficits. Alert and oriented x3. PSYCH: Normal mood and affect. Course Course Emergency Course: Patient states that headache and nausea has improved after IV fluids. I discussed lab work with the patient. Patient states that she has Zofran at home I advised her to continue the medication. And, follow-up with her primary doctor. Vital Signs Vital signs: Vital Signs Temperature 36.5 C 06/24/20 20:05 Pulse Rate 62 06/24/20 20:05 Respiratory Rate 16 06/24/20 20:05 Blood Pressure 126/70 06/24/20 20:05 Pulse Oximetry 99 06/24/20 20:05 Temperature 36.5 C 06/24/20 20:05 Pulse Rate 7 L 06/24/20 23:02 Respiratory Rat
--- NOTE | 2020-07-09 01:58 | PC.NURSE ---
NS fluids infused of 600cc via IV with 400cc remaining in bag when infusing stopped at 2340 on 08/09/2020
== END 2020-06-24 23:42 | disposition home or self-care (01) ==
PROVIDERS: Emergency Provider Family Medicine; PCP Family Medicine
DX: R51.9 Headache, unspecified (principal); R11.2 Nausea with vomiting, unspecified; M19.90 Unspecified osteoarthritis, unspecified site; J45.909 Unspecified asthma, uncomplicated; Z87.19 Personal history of other diseases of the digestive system; E78.5 Hyperlipidemia, unspecified; Z87.440 Personal history of urinary (tract) infections
CPT/HCPCS: 36415; 80053; 81001; 85025; 96361; 96374; 96375; 99284; J1885; J2405; J7030

== ENCOUNTER 2020-08-27 11:49 | Emergency (ER) | payer OTHER, SELFPAY ==
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
[2020-08-27 11:55] VITALS: BP 116/83; PULSE 86; RESP 20; TEMP 36.2; O2SAT 100
== END 2020-08-27 12:09 | disposition home or self-care (01) ==
PROVIDERS: Emergency Provider Nurse Practitioner Family; PCP Family Medicine
DX: T23.111A Burn of first degree of right thumb (nail), initial encounter (principal); X08.8XXA Exposure to other specified smoke, fire and flames, initial encounter; W39.XXXA Discharge of firework, initial encounter; M19.90 Unspecified osteoarthritis, unspecified site
CPT/HCPCS: 99212; G0463

== ENCOUNTER 2020-09-03 03:44 | Emergency (ER) | payer OTHER, SELFPAY ==
--- NOTE | 2020-09-03 03:49 | ED.NECK ---
HPI - Neck Pain/Injury General Chief Complaint: Neck Pain/Injury Stated Complaint: neck pain, hx of neck surgery Time Seen by Provider: 09/03/20 03:48 History of Present Illness HPI Narrative: Right sided neck pain for about 2 weeks. Associated with stiffness. She has a h/o neck surgery. She is on multiple pain medications and muscle relaxers chronically, but she says they are not helping because she takes them for her back pain. No trauma, fever, weakness, numbness. Related Data Home Medications Medication Instructions Recorded Confirmed baclofen mg 08/29/19 cetirizine [Zyrtec] 10 mg PO DAILY 08/29/19 fluticasone propionate INTRANASAL 08/29/19 hydrocodone-acetaminophen 08/29/19 lisinopril 08/29/19 ondansetron 08/29/19 pantoprazole PO 08/29/19 alprazolam 08/27/20 buspirone mg 08/27/20 clonidine HCl 08/27/20 fluoxetine mg 08/27/20 hydroxyzine HCl 08/27/20 Allergies Allergy/AdvReac Type Severity Reaction Status Date / Time codeine Allergy Unknown NAUSEA Verified 08/29/19 10:29 Penicillins Allergy Unknown Unknown Verified 08/29/19 10:29 Review of Systems Constitutional: Constitutional: Denies fever(s) and Denies weakness ENT: Denies sore throat Cardiovascular: Cardiovascular: Denies chest pain Respiratory: Respiratory: Denies dyspnea Musculoskeletal: Musculoskeletal: Reports back pain Integumentary/Breasts: Skin/Breast: Denies rash Neurologic: Denies dizziness, Reports headache(s) and Denies weakness [facility] Past Medical History Medical History Arthritis Asthma Bronchitis DDD (degenerative disc disease) Neck Depression Endometriosis Gall bladder disease History of bipolar disorder History of rectal polyps HLD (hyperlipidemia) Previous known suicide attempt UTI (urinary tract infection) Surgical History Surgical History H/O dilation and curettage H/O rectal polypectomy H/O Spinal surgery Neck H/O tubal ligation H/O: hysterectomy History of x3 History of cholecystectomy History of endometrial ablation History of tonsillectomy Social History Social History Smoking status: Unknown if ever smoked Gender identity (if verbalized by the patient): Female Exam Const: General: no acute distress Orientation/consciousness: patient oriented x3 HENMT: Head: normal to inspection Neck: Neck: normal visual inspection, no lymphadenopathy and no meningeal signs Resp: Effort & Inspection: normal respiratory effort Auscultation: clear to auscultation bilaterally Cardio: Rate: regular rate Rhythm: regular rhythm Back/Spine/Pelvis: Cervical Spine: cervical muscular tenderness and other (Increase cervical muscle tone) Neuro: General: patient oriented x3 and moves all extremities Speech: normal speech Gait exam (Neuro): Normal gait present Extrem: General: normal to inspection Course Vital Signs Vital signs: Vital Signs Temperature 36.7 C 09/03/20 03:53 Blood Pressure 120/70 09/03/20 03:53 Pulse Oximetry 100 09/03/20 03:53 Temperature 36.7 C 09/03/20 03:53 Pulse Rate 67 09/03/20 05:54 Respiratory Rate 18 09/03/20 05:54 Blood Pressure 110/81 09/03/20 05:54 Pulse Oximetry 99 09/03/20 05:54 MDM - Neck Pain/Injury MDM Narrative Medical decision making narrative: Exacerbation of chronic pain with no worrisome features. She is already on multiple medications for her pain. I will provide a very small Rx of valium. Differential Diagnosis Differential diagnosis: Likely disc disorder of cervical region, torticollis and strain of neck muscle Medical Records Attestation: I reviewed the patient's medical records. Discharge Plan Discharge Clinical Impression: Strain of neck muscle Patient Disposition: Home, Self-Care Condition: Stable Instructions:
[2020-09-03 03:53] VITALS: BP 120/70; TEMP 36.7; O2SAT 100
[2020-09-03 04:46] VITALS: BP 106/84; PULSE 63; RESP 18; O2SAT 99
[2020-09-03] MEDS: diazePAM INJ (*CRX) 10 MG/2 ML SYRINGE 5 MG IM (04:48)
[2020-09-03 05:54] VITALS: BP 110/81; PULSE 67; RESP 18; O2SAT 99
== END 2020-09-03 05:57 | disposition home or self-care (01) ==
PROVIDERS: Emergency Provider Emergency Medicine; PCP Family Medicine
DX: S16.1XXA Strain of muscle, fascia and tendon at neck level, initial encounter (principal); E78.5 Hyperlipidemia, unspecified; J45.909 Unspecified asthma, uncomplicated; N80.9 Endometriosis, unspecified; M19.90 Unspecified osteoarthritis, unspecified site; F31.9 Bipolar disorder, unspecified; Z87.19 Personal history of other diseases of the digestive system; Z87.440 Personal history of urinary (tract) infections; X58.XXXA Exposure to other specified factors, initial encounter
CPT/HCPCS: 96372; 99283; J3360

== ENCOUNTER 2020-09-22 10:45 | Outpatient (CLI) | payer OTHER, SELFPAY ==
--- NOTE | ~2020-09-22 | XR_ITS ---
XR cervical spine 4-5V DATE: 09/22/2020 11:11 INDICATION: Neck pain TECHNIQUE: AP, open-mouth, lateral, swimmer views COMPARISON: March 25, 2018 cervical spine FINDINGS: Again noted is postoperative change from anterior cervical spine fusion at C5-C7. There is straightening of the cervical spine. C1 and C2 are normally aligned and the odontoid process is intact. No fracture or dislocation or locked facet or prevertebral soft tissue swelling is detect ed. Mild degenerative disc disease at C4-5. Degenerative change of the apophyseal joints. IMPRESSION: Status post anterior cervical spine fusion at C5-7 Degenerative changes Reviewed, dictated and finalized at location B.
== END 2020-09-22 10:46 | disposition home or self-care (01) ==
LOC: ANHIMG 10:52
PROVIDERS: PCP Family Medicine; Visit Provider Nurse Practitioner
DX: M47.892 Other spondylosis, cervical region (principal); Z98.1 Arthrodesis status; M50.30 Other cervical disc degeneration, unspecified cervical region
CPT/HCPCS: 72050

== ENCOUNTER 2023-02-27 00:42 | Day surgery (SDC) | payer OTHER, SELFPAY ==
[2023-01-30 14:27] VITALS: BMI 28.3
--- NOTE | 2023-02-23 10:43 | SUR.PREOP ---
Patient called regarding upcoming procedure. Reviewed preop instructions, appointment times, and procedure prep.
[2023-02-27 08:16] VITALS: BP 127/69; PULSE 97; RESP 17; TEMP 36.4; O2SAT 100; BMI 27.9
[2023-02-27] MEDS: LACTATED RINGERS 1,000 ML 150 ML IV CONT (08:22)
--- NOTE | 2023-02-27 08:46 | WPDANESEPPF ---
Anes - Initial Pre Proc Eval Procedure: Operation Date: 02/27/23 09:30 Proposed Procedures p Screening Colonoscopy - Froilan Houston MD Date/Time: 02/27/23 08:46 Surgeon: Froilan Houston MD Pre Op Diagnosis: neoplasm screening Patient Data Age: 57 Gender: F Height: 1.7 m Weight: 80.9 kg Last Vital Signs Temp 97.5 F L 02/27/23 08:16 Pulse 97 02/27/23 08:16 Resp 17 02/27/23 08:16 BP 127/69 02/27/23 08:16 Pulse Ox 100 02/27/23 08:16 O2 Del Method Room Air 02/27/23 08:16 Allergies Allergy/AdvReac Type Severity Reaction Status Date / Time codeine Allergy Unknown NAUSEA Verified 02/27/23 08:13 Penicillins Allergy Unknown Unknown Verified 02/27/23 08:13 Home Medications Medication Instructions Recorded Confirmed Type cetirizine 10 mg capsule (Zyrtec) 10 mg PO DAILY 08/29/19 02/27/23 History amlodipine 5 mg tablet 5 mg PO DAILY 01/30/23 02/27/23 History atorvastatin 40 mg tablet 40 mg PO DAILY 01/30/23 02/27/23 History bupropion HCl 150 mg 24 hr tablet, 150 mg PO DAILY 01/30/23 02/27/23 History extended release ergocalciferol (vitamin D2) 1,250 1,250 mcg PO WEEKLY 01/30/23 02/27/23 History mcg (50,000 unit) capsule (Vitamin D2) folic acid 1 mg tablet 1 mg PO DAILY 01/30/23 02/27/23 History mecobalamin (vitamin B12) 1,000 1,000 mcg PO DAILY 01/30/23 02/27/23 History mcg chewable tablet Patient hx anesthesia problems: none Family hx anesthesia problems: none Results Review: All pre-operative results and documents have been reviewed as part of the pre-operative evaluation. [facility] Past Medical History Medical History Arthritis Asthma Bronchitis DDD (degenerative disc disease) Neck Depression Endometriosis Gall bladder disease History of bipolar disorder History of rectal polyps HLD (hyperlipidemia) Previous known suicide attempt UTI (urinary tract infection) Surgical History Surgical History H/O dilation and curettage H/O rectal polypectomy H/O Spinal surgery Neck H/O tubal ligation H/O: hysterectomy History of x3 History of cholecystectomy History of endometrial ablation History of tonsillectomy Social History Social History Smoking packs per day: 1 Smoking cigarettes per day: 20.0 Years smoked: 45 Smoking pack-years: 45.00 Smoking status: Current every day smoker Tobacco type: cigarettes Alcohol intake: current Alcohol use details: 2 drinks monthly Substance use: current Substance use type: marijuana Other substance usage details: 4x weekly Living arrangements: with family Gender identity (if verbalized by the patient): Female Spiritual care concerns: No Anes - Eval Final PreProcedure Day of Procedure 02/27/23 08:46 Patient weight: normal Heart: regular rate and rhythm Lungs: clear to auscultation Airway: Mallampati scale class II Neurological: alert and oriented Last oral intake: >/= 8 hours ASA classification: III Emergent: no Anesthetic plan: proceed Anesthesia type and monitoring: general GIVS and standard monitoring Results Review: All pre-operative results and documents have been reviewed as part of the pre-operative evaluation. Informed Consent: The patient's anesthetic plan and its attendant risks and benefits were discussed with the patient/family/POA. Questions were solicited and answers provided to the satisfaction of the patient/family/POA.
--- NOTE | 2023-02-27 08:55 | PM.HPGS ---
History of Present Illness History of Present Illness Consent: Risks, benefits, and alternatives have been discussed and questions answered. Patient agrees to proceed with procedure. Chief complaint: neoplasm screening Narrative: Audrey Burton is a 57 year old female with colon polyp in 2017 Review of Systems Constitutional: Constitutional: Denies headache(s) and Denies weakness Eyes: Eyes: Denies blurry vision ENT: Reports Normal hearing present, Denies headache(s) and Denies neck pain Cardiovascular: Cardiovascular: Denies chest pain and Denies dyspnea Respiratory: Respiratory: Denies dyspnea Gastrointestinal: Gastrointestinal: Reports no additional gastrointestinal complaints Genitourinary: Genitourinary: Denies dysuria Musculoskeletal: Musculoskeletal: Denies neck pain Integumentary/Breasts: Skin/Breast: Denies dry skin Neurologic: Reports Normal hearing present, Denies headache(s) and Denies weakness Psychiatric: Psychiatric: Denies anxiety Endocrine: Endocrine: Denies change in body appearance Hematologic/Lymphatic: Hematologic/Lymphatic: Denies easy bleeding Allergic/Immunologic: Allergic/Immunologic: Denies urticaria COUNTS INCLUDE 234 BEDS AT THE [facility] Past Medical History Medical History (Updated 02/27/23 @ 08:57 by Froilan Houston MD) Arthritis Asthma Bronchitis Colon polyp DDD (degenerative disc disease) Neck Depression Endometriosis Gall bladder disease History of bipolar disorder History of rectal polyps HLD (hyperlipidemia) Previous known suicide attempt UTI (urinary tract infection) Surgical History Surgical History H/O dilation and curettage H/O rectal polypectomy H/O Spinal surgery Neck H/O tubal ligation H/O: hysterectomy History of x3 History of cholecystectomy History of endometrial ablation History of tonsillectomy Social History Social History Smoking packs per day: 1 Smoking cigarettes per day: 20.0 Years smoked: 45 Smoking pack-years: 45.00 Smoking status: Current every day smoker Tobacco type: cigarettes Alcohol intake: current Alcohol use details: 2 drinks monthly Substance use: current Substance use type: marijuana Other substance usage details: 4x weekly Living arrangements: with family Gender identity (if verbalized by the patient): Female Spiritual care concerns: No Meds Home Medications and Allergies Home Medications Medication Instructions Recorded Confirmed Type cetirizine 10 mg capsule (Zyrtec) 10 mg PO DAILY 08/29/19 02/27/23 History amlodipine 5 mg tablet 5 mg PO DAILY 01/30/23 02/27/23 History atorvastatin 40 mg tablet 40 mg PO DAILY 01/30/23 02/27/23 History bupropion HCl 150 mg 24 hr tablet, 150 mg PO DAILY 01/30/23 02/27/23 History extended release ergocalciferol (vitamin D2) 1,250 1,250 mcg PO WEEKLY 01/30/23 02/27/23 History mcg (50,000 unit) capsule (Vitamin D2) folic acid 1 mg tablet 1 mg PO DAILY 01/30/23 02/27/23 History mecobalamin (vitamin B12) 1,000 1,000 mcg PO DAILY 01/30/23 02/27/23 History mcg chewable tablet Allergies Allergy/AdvReac Type Severity Reaction Status Date / Time codeine Allergy Unknown NAUSEA Verified 02/27/23 08:13 Penicillins Allergy Unknown Unknown Verified 02/27/23 08:13 Vital Signs Vital Signs - 24 hr 02/27/23 08:16 Temperature 97.5 F L Pulse Rate 97 Respiratory Rate 17 Blood Pressure 127/69 Pulse Oximetry 100 Oxygen Delivery Room Air Exam Const: General: comfortable and no acute distress HENMT: Face/Nose/Sinus: Normal nares present Eyes: General: appearance normal, both eyes and all related structures Neck: Neck: no JVD Resp: Auscultation: clear to auscultation bilaterally Cardio: Rate: regular rate Rhythm: regular rhythm GI: Inspection: non-distended GI Palp: Yes Soft to palpation Skin: General skin ex
[2023-02-27 09:13] VITALS: BP 156/85; PULSE 96; RESP 26; O2SAT 100
[2023-02-27 09:23] VITALS: BP 142/96; PULSE 89; RESP 17; O2SAT 100
[2023-02-27 09:33] VITALS: BP 128/87; PULSE 85; RESP 21; O2SAT 100
== END 2023-02-27 09:40 | disposition home or self-care (01) ==
PROVIDERS: PCP Internal Medicine; Visit Provider Internal Medicine Gastroenterology
PROC: 0DJD8ZZ Inspection of Lower Intestinal Tract, Via Natural or Artificial Opening Endoscopic (ICD-10-PCS; CPT 45378; principal; 2023-02-27 09:30)
DX: Z12.11 Encounter for screening for malignant neoplasm of colon (principal); D12.0 Benign neoplasm of cecum; K63.5 Polyp of colon; K64.8 Other hemorrhoids; E78.5 Hyperlipidemia, unspecified; F31.9 Bipolar disorder, unspecified; F17.210 Nicotine dependence, cigarettes, uncomplicated; F12.90 Cannabis use, unspecified, uncomplicated
CPT/HCPCS: 45385; 88305; J2704; J7120